=== PATIENT | female | born 1995 | race Caucasian/White ===

== ENCOUNTER 2018-12-26 10:52 | Emergency (ER) | payer SELFPAY ==
[~2018-12-26] VITALS: Ht 160 cm; Wt 67.3 kg
[2018-12-26] MEDS ORDERED: DEXAMETHASONE SOD PHOS 4 MG/ML 5 ML VIAL IM ONE (12:15)
[2018-12-26] MEDS ORDERED: KETOROLAC TROMETHAMINE 60 MG/2 ML VIAL IM ONE (12:15)
[2018-12-26] MEDS ORDERED: PENICILLIN G BENZATHINE LA 1,200,000 UNITS/2 ML SYRINGE IM ONE (12:15)
[2018-12-26 12:58] VITALS: BP 133/79
== END 2018-12-26 13:00 | disposition home or self-care (01) ==
LOC: EMS 10:59
DX: R07.0 Pain in throat (principal)
CPT/HCPCS: 81025; 96372; 99283; J0561; J1100; J1885